=== PATIENT | male | born 1960 | race African-American/Black ===

== ENCOUNTER 2017-11-26 22:36 | Emergency (ER) | payer OTHER ==
[~2017-11-26 22:36] MED LIST: BUDESONIDE 0.5MG/2ML AMPUL.NEB NEB ONE; IPRATROPIUM/ALBUTEROL SULFATE 3 ML AMPUL.NEB NEB ONE; SODIUM CHLORIDE 3 ML VIAL.NEB IH ONE
[2017-11-26] MEDS ORDERED: methylPREDNISolone SOD SUCC 125 MG/2 ML VIAL IVP ONE (23:41)
[2017-11-26] MEDS ORDERED: BUDESONIDE 0.5MG/2ML AMPUL.NEB NEB ONE (23:42)
[2017-11-26] MEDS ORDERED: 0.9 % SODIUM CHLORIDE 1,000 ML IV ONE (23:44)
[2017-11-26] MEDS ORDERED: 0.9 % SODIUM CHLORIDE 1,000 ML IV SCH (23:45)
[2017-11-26 23:52] LABS: BASOPHILS % 0.5 (0.0-1.5); EOSINOPHILS % 14.1 % (0.0-6.8); MEAN CORPUSCULAR HEMOGLOBIN 29.7 pg (28.0-34.0); MEAN CORPUSCULAR VOLUME 91.9 fl (80.0-100.0); MONOCYTES % 8.4 % (0.0-11.0); NEUTROPHILS # 3.2 # k/uL (1.4-7.7)
[2017-11-27 00:10] LABS: eGFR (African) > 60; eGFR (Non-African) > 60
[2017-11-27] MEDS ORDERED: BENZONATATE 100 MG CAPSULE PO ONE (00:25)
[2017-11-27] MEDS ORDERED: guaiFENesin DM 100 MG/10 MG/5 ML 118ML BOTTLE PO ONE (00:26)
[2017-11-27 01:49] VITALS: BP 138/74
[2017-11-27] MEDS ORDERED: IPRATROPIUM/ALBUTEROL SULFATE 3 ML AMPUL.NEB NEB ONE (02:30)
--- NOTE | 2017-11-27 02:51 | Diagnostic Imaging Report ---
[facility] [address] [address] Report Submission Date: Nov 27, 2017 12:25:59 AM CDT Patient Study Name: KIMBERLEY KABA Date: Nov 26, 2017 11:56:46 PM CDT Modality Type: DX Gender: M Description: CHEST : 56 Institution: [facility] Physician: DIANE FALLON PA and lateral chest Clinical history: PT STATES WHEEZING,SOA,COUGHING, AND CHEST PAIN Findings: Examination of the chest in PA and lateral views with no prior films for comparison demonstrates the lungs to be clear. Cardiovascular and mediastinal silhouettes are within normal limits for the patient's age. Bony thorax is intact. Impression: 1. No active disease. Electronically signed on Nov 27, 2017 12:25:59 AM CDT by: Akbar BERRIOS
--- NOTE | 2017-11-28 05:29 | ED Physician Documentation ---
Dyspnea - HISTORIAN Historian: patient - HPI Stated Complaint: Shortness of air Chief Complaint: Dyspnea Onset: other (today) Duration: continues in ED Severity: moderate Exacerbated By: nothing Associated Symptoms: other (cough) Further Comments: no - ROS CONST: no problems EYES/ENT: none GI/: none NEURO/PSYCH: denies: headache MS/SKIN/LYMPH: none - PAST HX Lung Disease: asthma Cardiac Disease: none PE Risk Factors: none Surgeries/Procedures: none Other History: none Immunizations: referred to PCP Allergies/Adverse Reactions: Allergies Allergy/AdvReac Type Severity Reaction Status Date / Time No Known Allergies Allergy Verified 12/05/12 21:51 Home Medications: Ambulatory Orders Medication Instructions Recorded Unobtainable [Unobtainable] 12/05/12 - SOCIAL HX Smoking History: cigarettes Alcohol Use: occasionally Drug Use: marijuana - FAMILY HX Family History: none - VITAL SIGNS Vital Signs: Vital Signs Temp Pulse Resp BP Pulse Ox 98.4 F 72 18 138/74 96 11/26/17 22:45 11/27/17 01:00 11/27/17 01:00 11/27/17 01:00 11/27/17 01:00 - REVIEWED ASSESSMENTS Nursing Assessment Reviewed: Yes Vitals Reviewed: Yes Progress - Results/Orders Results/Orders: cxr, cbc, bmp ordered - Progress Progress: Duoneb nebulizer tx, Pulmicort 0.5 mg nebulizer tx, Robitussin DM 2 tsp p.o., Tessalon Perles 200 mg p.o., 1 liter NS IV, 125 mg solu medrol ivp given in er with resolution of symptoms Critical Care Note - Critical Care Note Total Time (mins): 0 ED Results Lab/Radiology - Lab Results Lab Results: Lab Results 11/26/17 11/26/17 23:44 23:44 WBC 7.80 K/ul K/ul (4.00-12.00) RBC 4.86 M/ul M/ul (3.90-5.20) Hgb 14.5 g/dL g/dL (12.0-18.0) Hct 44.7 % % (37.0-53.0) MCV 91.9 fl fl (80.0-100.0) MCH 29.7 pg pg (28.0-34.0) MCHC 32.4 g/dL g/dL (30.0-36.0) RDW 14.0 % % (11.3-14.3) Plt Count 204 K/mm3 K/mm3 (130-400) Neut % (Auto) 40.4 % % (39.0-79.0) Lymph % (Auto) 32.6 % % (16.0-50.0) Daniels % (Auto) 8.4 % % (0.0-11.0) Eos % (Auto) 14.1 % H % (0.0-6.8) Baso % (Auto) 0.5 (0.0-1.5) Neut # (Auto) 3.2 # k/uL # k/uL (1.4-7.7) Lymph # (Auto) 2.6 # k/uL # k/uL (0.6-4.0) Daniels # (Auto) 0.7 # k/uL # k/uL (0.0-0.9) Eos # (Auto) 1.1 # k/uL H # k/uL (0.0-0.6) Baso # (Auto) 0.0 # k/uL # k/uL (0.0-0.5) Reactive Lymphs % 3.9 % % (0.0-5.0) Reactive Lymphs # 0.3 # k/uL # k/uL (0.0-0.8) Sodium 141 mmol/L mmol/L (136-145) Potassium 3.7 mmol/L mmol/L (3.5-5.1) Chloride 107 mmol/L mmol/L (98-107) Carbon Dioxide 19 mmol/L L mmol/L (22-30) BUN 8 mg/dL L mg/dL (9-20) Creatinine 1.00 mg/dL mg/dL (0.66-1.25) Est GFR ( Amer) > 60 (60 - ) Est GFR (Non-Af Amer) > 60 (60 - ) Glucose 114 mg/dL H mg/dL (74-106) Calcium 9.1 mg/dL mg/dL (8.4-10.2) - Radiology Radiology Impressions: chest x-ray reveals no infiltrate - Orders Orders: ED Orders Category Date Time Status Place IV Lock 1T Care 11/27/17 02:29 Active CHEST 2VIEW [RAD] Routine Exams 11/26/17 Completed BMP Routine Lab 11/26/17 23:44 Completed CBC/PLATELET/DIFF Routine Lab 11/26/17 23:44 Completed 0.9 % Sodium Chloride [Normal Saline] 1,000 ml Med 11/26/17 23:45 Discontinued IV .Q1H 0.9 % Sodium Chloride [Normal Saline] 1,000 ml Med 11/26/17 23:44 Discontinued IV .STK-MED Benzonatate [Tessalon] Med 11/27/17 00:25 Discontinued 200 mg PO NOW ONE Budesonide [Pulmicort] Med 11/26/17 22:36 Discontinued 0.5 mg NEB .STK-MED ONE Budesonide [Pulmicort] Med 11/26/17 23:42 Discontinued 0.5 mg NEB 1T ONE Ipratropium/Albuterol Sulfate [Duoneb] Med 11/26/17 22:36 Discontinued 3 ml NEB .STK-MED ONE Ipratropium/Albuterol Sulfate [Duoneb] Med 11/27/17 02:30 Discontinued 3 ml NEB NOW ONE Sodium Chloride For Inhalation [Dey] Med 11/26/17 22:36 Discontinued 3 ml IH .STK-MED ONE guaiFENesin DM [Robitussin Dm] Med 11/27/17 00:26 Discontinued 10 ml PO NOW ONE methylPREDNISolone SOD SUCC [Solu-MEDROL] Med 11/26/17 23:41 Discontinued 125 mg IVP NOW ONE Dyspnea Physical Exam - EXAM General Appearance: alert, moderate distress EENT: eye inspection normal, ENT inspection normal, pharynx normal, no signs of dehydration, IDALMIS, no nystagmus, TM's nml Neck: nml inspection Respiratory: speaks full sentences, wheezes CVS: reg. rate & rhythm, no murmur, no gallop Abdomen: non-tender, no organomegaly, no distention Skin: color nml, no rash Extremities: non-tender, normal range of motion, no evidence of injury, no edema Neuro/Psych: oriented x3, CN's nml as tested, motor nml, sensation nml, mood/ affect nml Discharge Clincal Impression: Asthma Qualifiers: Asthma severity: moderate Asthma persistence: unspecified Asthma complication type: uncomplicated Qualified Code(s): J45.909 - Unspecified asthma, uncomplicated Referrals: Jules Sosa MD [Primary Care Provider] - 2 Days Comments: Discharged in stable condition with script for Pro Air HFA 2 puffs qid, tessalon perles 200 mg 1 pill 3x/day and Prednisone taper. Condition: Stable Disposition: HOME, SELF-CARE Decision to Admit: NO Decision Time: 01:00
== END 2017-11-27 01:00 | disposition home or self-care (01) ==
LOC: ED 22:36
DX: J45.909 Unspecified asthma, uncomplicated (principal)
CPT/HCPCS: 71046; 80048; 85025; A9270; J2930; J7030; J7626; 94640; 96365; 96375; 99284; S1016